=== PATIENT | male | born 1985 | race Caucasian/White ===

== ENCOUNTER 2017-01-10 09:52 | Emergency (ER) | payer BC ==
[~2017-01-10] VITALS: Ht 180.3 cm; Wt 91.0 kg
[2017-01-10] MEDS ORDERED: NS 1,000 ML IV ONE (10:15)
[2017-01-10 11:18] LABS: BASO % 0.3 % (0.0-1.0); EOS # 0.1 K/mm3 (0.0-0.50); EOS % 0.9 % (0.0-3.0); LARGE UNSTAINED CELL # 0.1 K/mm3 (0.0-0.4); LARGE UNSTAINED CELL % 0.7 % (0.0-4.0); LYMPH # 0.8 K/mm3 (1.5-4.5); LYMPH % 8.2 % (24.0-44.0); MEAN CORPUSCULAR HEMOGLOBIN 31.6 pg (27.0-33.0); MEAN CORPUSCULAR HGB CONC 35.8 g/dl (32.0-36.5); MEAN CORPUSCULAR VOLUME 88.1 fl (80.0-96.0); MONO # 0.3 K/mm3 (0.0-0.8); MONO % 2.9 % (0.0-5.0); NEUTROPHILS # 8.3 K/mm3 (1.8-7.7); NEUTROPHILS % 87.1 % (36.0-66.0); PLATELET COUNT, AUTOMATED 280 k/mm3 (150-450); RED CELL DISTRIBUTION WIDTH 12.1 % (11.5-14.5); WHITE BLOOD COUNT 9.5 K/mm3 (4.0-10.0)
[2017-01-10 11:32] LABS: ANION GAP 6 MEQ/L (8-16); BLOOD UREA NITROGEN 16 MG/DL (7-18); CALCIUM LEVEL 9.4 MG/DL (8.5-10.1); CARBON DIOXIDE LEVEL 25 MEQ/L (21-32); CHLORIDE LEVEL 105 MEQ/L (98-107); CREATININE FOR GFR 1.08 MG/DL (0.70-1.30); GLOMERULAR FILTRATION RATE > 60.0 (>60); GLUCOSE, FASTING 81 MG/DL (70-105); POTASSIUM SERUM 4.8 MEQ/L (3.5-5.1); SODIUM LEVEL 136 MEQ/L (136-145)
[2017-01-10 14:43] VITALS: BP 115/67
--- NOTE | 2017-01-12 07:13 | ECGEPIP ---
Stationary ECG Study [facility] - ED Test Date: 2017-01-10 Pat Name: AMISHA QUINTERO Department: Room: - Gender: M [employer]: : [id number] Requested By: Sarah Petty Order Number: [id number] Reading MD: Sarah Petty Measurements Intervals [place] Rate: 82 P: 7 HI: 157 QRS: 69 QRSD: 96 T: 10 QT: 368 QTc: 431 Interpretive Statements SINUS RHYTHM NONSPECIFIC T-WAVE ABNORMALITY NO PRIOR FOR COMPARISON Electronically Signed On 01-12-2017 7:12:52 EDT by Sarah Petty
== END 2017-01-10 14:46 | disposition home or self-care (01) ==
LOC: M ED 09:52 → EDBD 09:52 → M ED 14:46
DX: R55 Syncope and collapse (principal)

== ENCOUNTER → 2017-06-28 | Outpatient (CLI) | payer BC ==
--- NOTE | 2017-06-28 19:53 | REP ---
HISTORY: Pain after trauma. COMPARISON: None. FINDINGS: No acute fracture or destructive osseous lesion. Signed by Bora Adam DO 06/29/2017 02:10 P
== END ==
LOC: M WUC 18:31
PROVIDERS: ATTEND Physician Assistant
DX: M79.632 Pain in left forearm (principal)

== ENCOUNTER → 2018-07-31 | Outpatient (REF) | payer BC ==
--- NOTE | 2018-08-01 02:52 | REP ---
Clinical: Right knee pain. Technique: AP and lateral views of the right knee. Findings: No acute fracture or dislocation. No effusion. No significant prepatellar swelling. Osseous structures, joint spaces, and surrounding soft tissues are essentially normal for age by radiographic evaluation. Impression: Age-appropriate right knee radiograph series. Electronically Signed by Jonas Busby MD 08/01/2018 02:43 A
== END ==
LOC: M ADAMS 14:51
PROVIDERS: ATTEND Physician Assistant
DX: M25.561 Pain in right knee (principal)

== ENCOUNTER → 2020-04-06 | Outpatient (REF) | payer BC | LOC: M LAB REF 16:07 | PROVIDERS: ATTEND Physician Assistant | DX: J02.9 Acute pharyngitis, unspecified (principal) ==

== ENCOUNTER → 2021-02-08 | Outpatient (CLI) | payer BC ==
--- NOTE | 2021-02-09 08:11 | REP ---
INDICATION: RIGHT FOOT PAIN. COMPARISON: None. TECHNIQUE: Axial and lateral views of the right os calcis are provided. FINDINGS: Axial and lateral views of the right calcaneus demonstrate subtle sclerosis and lucency at the Achilles tendon insertion of the posterior calcaneus. There is a questionable erosive change at the plantar fascial insertion on the calcaneus as well. These may represent inflammatory arthropathy changes.. No fracture or subluxation is seen. No opaque foreign body noted. IMPRESSION: Subtle erosive changes suspected at the Achilles tendon and plantar fascia insertions on the calcaneus. Question inflammatory arthropathy such as Lucia's (reactive arthritis), or less likely psoriatic. <Electronically signed by Mauricio Avalos > 02/09/21 2257
== END ==
LOC: M RAD 20:31
PROVIDERS: ATTEND Physician Assistant Medical
DX: R93.89 Abnormal findings on diagnostic imaging of other specified body structures (principal); M79.671 Pain in right foot

== ENCOUNTER → 2023-09-25 | Outpatient (CLI) | payer BC ==
[2023-09-25 11:43] LABS: BASO % 0.6 % (0.0-1.0); EOS % 0.6 % (0.0-3.0); HEMATOCRIT 45.2 % (42.0-52.0); HEMOGLOBIN 15.8 g/dl (13.5-17.5); LYMPH # 2.4 10^3/uL (1.5-5.0); LYMPH % 37.5 % (24.0-44.0); MEAN CORPUSCULAR HEMOGLOBIN 31.1 pg (27.0-33.0); MONO # 0.4 10^3/uL (0.0-0.8); MONO % 6.2 % (2.0-8.0); NEUTROPHILS # 3.5 10^3/uL (1.5-8.5); NEUTROPHILS % 54.8 % (36.0-66.0); PLATELET COUNT, AUTOMATED 322 10^3/uL (150-450); RED BLOOD COUNT 5.08 10^6/uL (4.30-6.10); WHITE BLOOD COUNT 6.5 10^3/uL (4.0-10.0)
[2023-09-25 12:12] LABS: URIC ACID 7.1 MG/DL (3.7-9.2)
[2023-09-25 12:14] LABS: C REACTIVE PROTEIN QUANTITATIV < 0.40 MG/DL (<1.0)
[2023-09-25 12:16] LABS: ALBUMIN 4.2 G/DL (3.2-5.2); ALKALINE PHOSPHATASE 55 U/L (46-116); ALT/SGPT 36 U/L (7.0-40); AST/SGOT 12 U/L (<34); BILIRUBIN,TOTAL 0.4 MG/DL (0.3-1.2); BLOOD UREA NITROGEN 16 MG/DL (9-23); CARBON DIOXIDE LEVEL 28 MMOL/L (20-31); CHLORIDE LEVEL 105 MMOL/L (98-107); CREATININE FOR GFR 0.94 MG/DL (0.70-1.30); GLOMERULAR FILTRATION RATE > 60.0 (>60); GLUCOSE, FASTING 89 MG/DL (60-100); POTASSIUM SERUM 4.4 MMOL/L (3.5-5.1); SODIUM LEVEL 139 MMOL/L (136-145); TOTAL PROTEIN 7.2 G/DL (5.7-8.2)
== END ==
LOC: M WUC 09:46
PROVIDERS: ATTEND Physician Assistant
DX: M79.672 Pain in left foot (principal)

== ENCOUNTER → 2024-01-03 | Outpatient (REF) | payer OTHER ==
[2024-01-03 14:35] LABS: BASO # 0.1 10^3/uL (0.0-0.2); EOS # 0.1 10^3/uL (0.0-0.5); EOS % 1.2 % (0.0-3.0); HEMATOCRIT 43.8 % (42.0-52.0); LYMPH # 2.6 10^3/uL (1.5-5.0); LYMPH % 53.4 % (24.0-44.0); MEAN CORPUSCULAR HEMOGLOBIN 30.7 pg (27.0-33.0); MEAN CORPUSCULAR HGB CONC 34.2 g/dl (32.0-36.5); MEAN CORPUSCULAR VOLUME 89.6 fl (80.0-96.0); MONO # 0.4 10^3/uL (0.0-0.8); MONO % 8.1 % (2.0-8.0); NEUTROPHILS # 1.8 10^3/uL (1.5-8.5); NEUTROPHILS % 35.9 % (36.0-66.0); PLATELET COUNT, AUTOMATED 294 10^3/uL (150-450); RED BLOOD COUNT 4.89 10^6/uL (4.30-6.10); WHITE BLOOD COUNT 4.9 10^3/uL (4.0-10.0)
[2024-01-03 15:02] LABS: ALBUMIN 4.1 G/DL (3.2-5.2); ALKALINE PHOSPHATASE 61 U/L (46-116); ALT/SGPT 32 U/L (7.0-40); AST/SGOT 21 U/L (<34); BILIRUBIN,TOTAL 0.8 MG/DL (0.3-1.2); BLOOD UREA NITROGEN 16 MG/DL (9-23); CALCIUM LEVEL 9.6 MG/DL (8.5-10.1); CARBON DIOXIDE LEVEL 26 MMOL/L (20-31); CHLORIDE LEVEL 106 MMOL/L (98-107); CHOLESTEROL LEVEL 235 MG/DL (<200); CHOLESTEROL RISK RATIO 6.07 (<5); GLOMERULAR FILTRATION RATE > 60.0 (>60); GLUCOSE, FASTING 86 MG/DL (60-100); HDL CHOLESTEROL 38.7 MG/DL (>40); LDL CHOLESTEROL 142.7 MG/DL (<100); NON-HDL-C 196.3 MG/DL; POTASSIUM SERUM 3.7 MMOL/L (3.5-5.1); SODIUM LEVEL 140 MMOL/L (136-145); TRIGLYCERIDES LEVEL 268 MG/DL (<150)
[2024-01-03 15:03] LABS: FREE T4 1.45 NG/DL (0.89-1.76)
[2024-01-03 15:22] LABS: HEMOGLOBIN A1c 4.9 % (4.0-6.0)
[2024-01-03 15:35] LABS: HEPATITIS C VIRUS ABY INDEX 0.06 INDEX (<0.8)
== END ==
LOC: M LABDRWAD 13:15
PROVIDERS: ATTEND Registered Nurse
DX: Z00.00 Encounter for general adult medical examination without abnormal findings (principal)